=== PATIENT | male | born 1975 | race Hispanic/Latino ===

== ENCOUNTER 2022-11-01 18:43 | Emergency (ER) | payer OTHER ==
[~2022-11-01] VITALS: Ht 160 cm; Wt 74.8 kg
[2022-11-01 18:46] VITALS: BP 132/89
== END 2022-11-01 21:40 | disposition left against medical advice (07) ==
LOC: EDH 18:43
DX: M79.675 Pain in left toe(s) (principal); Z53.21 Procedure and treatment not carried out due to patient leaving prior to being seen by health care provider

== ENCOUNTER 2024-05-06 08:24 | Day surgery (SDC) | payer OTHER ==
[2024-05-06] VITALS (10 sets, daily range): BP systolic 132–162; BP diastolic 59–82; PULSE 58–68; RESP 13–16; TEMP 97.1–98
[~2024-05-06] VITALS: Ht 165.1 cm; Wt 69.4 kg
[~2024-05-06 08:24] MED LIST: ASPI-1197 PO; AURYXIA PO; FOLI-114 PO; HYDR100T15 PO; OMEG100014 PO; SIMV-43 PO
[2024-05-06] MEDS: 0.9%NACL 1000ML 1,000 ML IV ONE (09:10)
[2024-05-06] MEDS ORDERED: OMEP20TA20 PO (09:22)
[2024-05-06] MEDS ORDERED: proPOFol 10 MG/ML 20ML VIAL IV ONE (10:42)
[2024-05-06] MEDS ORDERED: LIDOCAINE HCL 1% 20 ML VIAL ONE (10:42)
== END 2024-05-06 11:55 | disposition home or self-care (01) ==
LOC: DAH 08:24 → ENDO 08:24
PROVIDERS: ATTEND Internal Medicine Gastroenterology
DX: Z09 Encounter for follow-up examination after completed treatment for conditions other than malignant neoplasm (principal); K63.89 Other specified diseases of intestine; I12.0 Hypertensive chronic kidney disease with stage 5 chronic kidney disease or end stage renal disease; N18.6 End stage renal disease; F41.9 Anxiety disorder, unspecified; F32.A Depression, unspecified; K29.50 Unspecified chronic gastritis without bleeding; M19.90 Unspecified osteoarthritis, unspecified site; E78.5 Hyperlipidemia, unspecified; Z90.49 Acquired absence of other specified parts of digestive tract; Z98.890 Other specified postprocedural states; Z79.82 Long term (current) use of aspirin; Z79.899 Other long term (current) drug therapy; Z86.73 Personal history of transient ischemic attack (TIA), and cerebral infarction without residual deficits; Z99.2 Dependence on renal dialysis
CPT/HCPCS: 45378; J7030; J2704; A4620; A4215 ×2; A4223; A4222; A4221; A4663; A4606; J3490